=== PATIENT | female | born 1970 | race Caucasian/White ===

== ENCOUNTER 2019-06-01 00:33 | Day surgery (SDC) | payer BC, SELFPAY ==
[2019-05-25 14:59] VITALS: BMI 30.9
--- NOTE | 2019-05-30 14:14 | WPDANESEPP ---
Anes - Eval Pre Procedure Procedure: Operation Date: 06/01/19 10:00 Proposed Procedures p Screening Colonoscopy - Dayo Smiley MD Date/Time: 05/30/19 14:14 Pre Op Diagnosis: neoplasm screening Patient Data Age: 49 Gender: F Height: 5 ft 6 in Weight: 87 kg Allergies Allergy/AdvReac Type Severity Reaction Status Date / Time shellfish derived Allergy Severe lip Verified 05/25/19 14:56 swelling,hives, nauseated amoxicillin Allergy Intermediate swollen Verified 05/25/19 14:56 lips, vomiting guaifenesin [From Mucinex] Allergy Intermediate Rash Verified 05/25/19 14:56 Home Medications Medication Instructions Recorded Confirmed Type cetirizine 10 mg capsule 10 mg PO DAILY #90 cap 04/29/19 05/25/19 Rx Patient hx anesthesia problems: none Family hx anesthesia problems: none PMFSH Past Medical History Medical History (Updated 05/30/19 @ 14:12 by Claudine Randall CRNA) Obesity (BMI 30-39.9) Surgical History Surgical History (Updated 05/30/19 @ 14:14 by Claudine Randall CRNA) H/O abdominoplasty H/O arthroscopy of shoulder right H/O: hysterectomy Hx of augmentation mammoplasty Hx of cholecystectomy Family History Family History Father Patient's father is in good health Social History Social History Smoking status: Former smoker Second hand tobacco smoke exposure: No Smoking end date: 04/22/91 Alcohol intake: current Exam Day of Procedure 05/30/19 14:14
[2019-06-01 08:37] VITALS: BP 135/89; PULSE 87; TEMP 36.7; O2SAT 99
[2019-06-01] MEDS: LACTATED RINGERS 1,000 ML 150 ML IV CONT (08:55)
--- NOTE | 2019-06-01 09:20 | P.PNAN_ITS ---
Anes - Eval Final PreProcedure Day of Procedure 06/01/19 09:20 Patient weight: obese Heart: regular rate and rhythm Lungs: clear to auscultation Airway: Mallampati scale class 1 Neurological: alert and oriented Last oral intake: >/= 8 hours ASA classification: II Emergent: no Anesthetic plan: proceed Anesthesia type and monitoring: general GIVS and standard monitoring Informed Consent: The patient's anesthetic plan and its attendant risks and duncan efits were discussed with the patient/family/POA. Questions were solicited and answers provided to the satisfaction of the patient/family/POA.
--- NOTE | 2019-06-01 09:48 | PM.HPGS ---
History of Present Illness History of Present Illness Consent: Risks, benefits, and alternatives have been discussed and questions answered. Patient agrees to proceed with procedure. Chief complaint: neoplasm screening Narrative: Sherman Bella is a 49 year old female for screening colonoscopy. She has a family history of colon cancer on her father's side PMFSH Past Medical History Medical History Obesity (BMI 30-39.9) Surgical History Surgical History H/O abdominoplasty H/O arthroscopy of shoulder right H/O: hysterectomy Hx of augmentation mammoplasty Hx of cholecystectomy Family History Family History Father Patient's father is in good health Social History Social History Smoking status: Former smoker Second hand tobacco smoke exposure: No Smoking end date: 04/22/91 Alcohol intake: current Meds Home Medications and Allergies Home Medications Medication Instructions Recorded Confirmed Type cetirizine 10 mg capsule 10 mg PO DAILY #90 cap 04/29/19 05/25/19 Rx Allergies Allergy/AdvReac Type Severity Reaction Status Date / Time shellfish derived Allergy Severe lip Verified 06/01/19 08:36 swelling,hives, nauseated amoxicillin Allergy Intermediate swollen Verified 06/01/19 08:36 lips, vomiting guaifenesin [From Mucinex] Allergy Intermediate Rash Verified 06/01/19 08:36 Vital Signs Vital Signs - 24 hr 06/01/19 08:37 Temperature 36.7 C Pulse Rate 87 Blood Pressure 135/89 Pulse Oximetry 99 Exam Resp: Auscultation: clear to auscultation bilaterally Cardio: Rate: regular rate Rhythm: regular rhythm GI: GI Palp: Yes Soft to palpation and No Tenderness to palpation present (GI) Assessment and Plan Assessment and plan (1) Colon cancer screening: Code(s): Z12.11 - Encounter for screening for malignant neoplasm of colon Status: Acute Assessment and Plan: Colonoscopy with possible biopsy or polypectomy or cautery or injection of substances.
[2019-06-01 10:21] VITALS: BP 92/55; PULSE 73; RESP 19; O2SAT 100
[2019-06-01 10:31] VITALS: BP 99/59; PULSE 71; RESP 19; O2SAT 100
[2019-06-01 10:41] VITALS: BP 104/70; PULSE 67; RESP 15; O2SAT 100
== END 2019-06-01 10:50 | disposition home or self-care (01) ==
PROVIDERS: PCP Internal Medicine; Visit Provider Internal Medicine Gastroenterology
PROC: 0DJD8ZZ Inspection of Lower Intestinal Tract, Via Natural or Artificial Opening Endoscopic (ICD-10-PCS; CPT 45378; principal; 2019-06-01 10:00)
DX: Z12.11 Encounter for screening for malignant neoplasm of colon (principal); D12.5 Benign neoplasm of sigmoid colon; E66.9 Obesity, unspecified; Z68.31 Body mass index [BMI] 31.0-31.9, adult; Z87.891 Personal history of nicotine dependence
CPT/HCPCS: 45385; 88305; J2704; J7120

== ENCOUNTER → 2020-04-26 13:40 | Outpatient (CLI) | payer BC, SELFPAY ==
--- NOTE | ~2020-04-26 | CT_ITS ---
EXAMINATION: CT abdomen pelvis w con EXAM DATE: 04/26/2020 14:08 INDICATION: Right lower quadrant pain. Constipation. TECHNIQUE: Spiral CT of the abdomen and pelvis was performed following intravenous injection of 100 m L Omnipaque 350. Axial, coronal and sagittal images were reviewed. The dose-length product (DLP) fo r this examination was 810.01 mGy-cm. The exposure was tailored according to patient size (auto mA e xposure control), and iterative reconstruction (ASIR) was used as additional dose reduction technique . Comparison is made to prior examination from 06/24/2014. FINDINGS: The liver, spleen, adrenal glands and pancreas are unremarkable. There are cholecystectomy clips. Portal and splenic veins are patent. Kidneys enhance symmetrically. There is no hydronephr osis. The uterus is not identified and has likely been surgically resected. The bladder is unremar kable. There is no retroperitoneal or pelvic lymphadenopathy. There is mild scattered arterioscler otic disease. There is a round region at or in the terminal ileum measuring about 3 cm in diameter and 36 Hounsfiel d units, possible small bowel mass, or could be appendix origin histology such as mucocele or carcino id tumor (normal appendix not definitively identify). Consider follow-up fluoroscopy small bowel julisa um examination. There is small sliding gastroesophageal hiatal hernia. There is moderate amount of colonic stool. No free intraperitoneal gas. The heart is normal in size. There are no pericardial or pleural effu sions. There is a right pericardial cyst measuring 4.5 cm. The lung bases are unremarkable. Left shaila ac bone island. IMPRESSION: 1. Pericecal soft tissue density around region, differential diagnosis including terminal ileal mass , appendical carcinoid or mucocele, cecal polyp. Consider small bowel follow-through. 2. Moderate colonic stool. 3. Small gastroesophageal hiatal hernia. 4. Pericardial cyst. Reviewed, dictated and finalized at location A. STICK WORKER IMPRESSION: 1. Pericecal soft tissue density around region, differential diagnosis includi ng terminal ileal mass, appendical carcinoid or mucocele, cecal polyp. Consider small bowel follow-through. 2. Moderate colonic stool. 3. Small gastroesophageal hiatal hernia. 4. Pericardial cyst.
== END ==
PROVIDERS: PCP Internal Medicine; Visit Provider Obstetrics & Gynecology
DX: R10.2 Pelvic and perineal pain (principal); R93.5 Abnormal findings on diagnostic imaging of other abdominal regions, including retroperitoneum; K44.9 Diaphragmatic hernia without obstruction or gangrene; Q24.8 Other specified congenital malformations of heart
CPT/HCPCS: 74177; Q9967

== ENCOUNTER → 2020-05-09 12:35 | Outpatient (CLI) | payer BC, SELFPAY ==
--- NOTE | ~2020-05-09 | XR_ITS ---
EXAMINATION: XR small bowel follow through DATE: 05/09/2020 17:14 INDICATION: Right lower quadrant abdominal pain. TECHNIQUE: Oral contrast was administered, and a time course of radiographs of the abdomen was obtain ed. Fluoroscopy of the small bowel was performed. Fluoroscopy exposure time was 0.4 minutes. The tota l number of images was 19. COMPARISON: CT abdomen and pelvis 04/26/2020 FINDINGS: There are no dilated loops of bowel. No stricture. No mass. Transit time from the stomach to proximal colon was approximately 3 hours and 25 minutes. Surgical clips in the right upper quadrant are likel y from cholecystectomy. IMPRESSION: 1. Normal small bowel series. Reviewed, dictated and finalized at location B. ECT BUYER
== END ==
PROVIDERS: PCP Internal Medicine; Visit Provider Internal Medicine Gastroenterology
DX: R10.31 Right lower quadrant pain (principal)
CPT/HCPCS: 74250

== ENCOUNTER 2021-12-05 16:40 | Emergency (ER) | payer BC, SELFPAY ==
[2021-12-05 16:50] VITALS: BP 163/99; PULSE 87; RESP 16; TEMP 36.8; O2SAT 99
--- NOTE | 2021-12-05 17:12 | ED.FEMALEGU ---
HPI - Female Genitourinary General Chief complaint: Urogenital-Female Stated complaint: vaginal pain and burning Time Seen by Provider: 12/05/21 17:15 Source: patient, RN notes reviewed and old records reviewed Mode of arrival: ambulatory Limitations: no limitations History of Present Illness HPI Narrative: 51year old female audrey presents to express care with complaints of vaginal irritation and burning which started on Saturday morning after being on float trip this past weekend. Patient denies any vaginal discharge or any itching, denies any concern for STD exposure. Patient reports that she has not had any burning or pain with urination or any urgency, frequency, or any blood noted in urine. Patient denies any CVA tenderness or any suprapubic pain or pressure. MD elicited complaint: other (vaginal discomfort and burning) Pertinent past history: hysterectomy Onset (ago): day(s) (1) Related Data Home Medications Medication Instructions Recorded Confirmed Lactobacillus acidophilus 10 10,000 mmu cells PO DAILY 05/02/20 12/05/21 billion cell capsule (Probiotic) cholecalciferol (vitamin D3) 50 50 mcg PO DAILY 05/02/20 12/05/21 mcg (2,000 unit) tablet zinc 50 mg tablet 50 mg PO DAILY 01/24/21 12/05/21 Allergies Allergy/AdvReac Type Severity Reaction Status Date / Time shellfish derived Allergy Severe Anaphylaxis Verified 08/02/21 11:05 amoxicillin Allergy Intermediate Hives Verified 08/02/21 11:05 clindamycin Allergy Intermediate Hives Verified 08/02/21 11:05 guaifenesin [From Mucinex] Allergy Intermediate Rash Verified 08/02/21 11:05 Review of Systems Review of Systems: CONSTITUTIONAL: Denies fever, chills, or sweats. EYES: Denies visual changes, redness, or discharge. ENT: Denies rhinorrhea, congestion, sore throat, or otalgia. CARDIOVASCULAR: Denies chest pain, palpitations, or edema. RESPIRATORY: Denies cough or dyspnea. GASTROINTESTINAL: Denies abdominal pain, nausea, vomiting, or diarrhea. GENITOURINARY: Denies dysuria or hematuria.positive fro vaginal burning and discomfort, no discharge or itching stated SKIN: Denies rash or itching. MUSCULOSKELETAL: Denies back pain, joint pain, or myalgia.No CVA tenderness NEUROLOGIC: Denies headache, numbness, or weakness. PSYCHIATRIC: Denies anxiety or depression. All systems reviewed & are unremarkable except as noted in HPI and below PMFSH Past Medical History Medical History Obesity (BMI 30-39.9) RLQ abdominal pain Surgical History Surgical History H/O abdominoplasty H/O arthroscopy of shoulder right H/O: hysterectomy Hx of augmentation mammoplasty Hx of cholecystectomy Family History Family History Father Patient's father is in good health Social History Social History Smoking status: Never smoker Second hand tobacco smoke exposure: No Smoking end date: 04/22/91 Alcohol intake: current Drinks per week: 4 Alcohol use details: Wine Spiritual care concerns: No Comments At time of signature, agree with nursing past medical, surgical, social and family history. There is no relevant family history pertinent to the presenting complaint Exam Narrative: GENERAL: Well-appearing, well-nourished, and in no acute distress. HEAD: Normocephalic, atraumatic. EYES: PERRLA and EOMI. ENT: Nares clear, no rhinorrhea or epistaxis. Mucous membranes moist. TMs normal with good light reflex throat pink no lesions or exudates NECK: Supple. No lymphadenopathy CHEST: Clear to auscultation. No respiratory distress. SaO2 99% on room air HEART: Regular rate and rhythm. No murmur heard. Normal peripheral pulses. ABDOMEN: Soft, nontender, nondistended, normal active bowel sounds. No suprapubic tenderness no CVA tenderness on exam. Vaginal exam comple
== END 2021-12-05 17:47 | disposition home or self-care (01) ==
PROVIDERS: Emergency Provider Registered Nurse
DX: R10.2 Pelvic and perineal pain (principal); E66.9 Obesity, unspecified; Z68.31 Body mass index [BMI] 31.0-31.9, adult
CPT/HCPCS: 81003; 87070; 99213; G0463

== ENCOUNTER 2022-08-04 08:15 | Emergency (ER) | payer BC, SELFPAY ==
[2022-08-04 08:34] VITALS: BP 144/81; PULSE 112; RESP 16; TEMP 37.6; O2SAT 100
--- NOTE | 2022-08-04 08:50 | ED.URI ---
HPI - URI/Sore Throat General Chief Complaint: Upper Respiratory Infection Stated Complaint: fever,swollen tonsils,ear pain,sore throat Time Seen by Provider: 08/04/22 08:50 Source: patient, RN notes reviewed and old records reviewed Mode of arrival: ambulatory Limitations: no limitations History of Present Illness HPI Narrative: 52 year old female who presents to [facility] with complaints of fevers, swollen tonsils, ear pain and sore throat for the for the past 3 days. She reports that she has had chills and body aches and has had fevers up to 103.9F. Patient reports that she has noted white exudates on her tonsils, and her throat is sore especially with swallowing. Patient reports that she has not had COVID shots or flu shot. Patient has been taking Tylenol for her fever and takes daily Zyrtec. MD elicited complaint: fever, sore throat, rhinorrhea, nasal congestion and other (chills and body aches) Pertinent past history: other (history of strep) Onset (ago): day(s) (3) Pain scale (0-10): 4 Treatments prior to arrival: acetaminophen and other (zyrtec daily) Related Data Home Medications Medication Instructions Recorded Confirmed cholecalciferol (vitamin D3) 50 50 mcg PO DAILY 05/02/20 08/04/22 mcg (2,000 unit) tablet zinc 50 mg tablet 50 mg PO DAILY 01/24/21 08/04/22 Allergies Allergy/AdvReac Type Severity Reaction Status Date / Time shellfish derived Allergy Severe Anaphylaxis Verified 08/04/22 08:27 amoxicillin Allergy Intermediate Hives Verified 08/04/22 08:27 clindamycin Allergy Intermediate Hives Verified 08/04/22 08:27 guaifenesin [From Mucinex] Allergy Intermediate Rash Verified 08/04/22 08:27 ciprofloxacin Allergy Rash Verified 08/04/22 08:38 Review of Systems Review of Systems: CONSTITUTIONAL:Reports malaise, chills, sweats, or fever. EYES: Denies visual changes, redness, or discharge. ENT: Reports rhinorrhea, congestion, sinus pain, otalgia and sore throat. CARDIOVASCULAR: Denies chest pain, palpitations, or edema. RESPIRATORY: Reports no cough.? Denies dyspnea. GASTROINTESTINAL: Denies abdominal pain, nausea, vomiting, diarrhea SKIN: Denies rash or itching. MUSCULOSKELETAL:Reports myalgia. NEUROLOGIC: Denies headache. All systems reviewed & are unremarkable except as noted in HPI and below PMFSH Past Medical History Medical History Hx of urticaria Obesity (BMI 30-39.9) RLQ abdominal pain Surgical History Surgical History H/O abdominoplasty H/O arthroscopy of shoulder right H/O: hysterectomy Hx of augmentation mammoplasty Hx of cholecystectomy Family History Family History Father Patient's father is in good health Social History Social History Smoking status: Never smoker Second hand tobacco smoke exposure: No Smoking end date: 04/22/91 Alcohol intake: current Drinks per week: 4 Alcohol use details: Wine Substance use: unknown Lack of Transportation: No Lack of Food: Never True Current Housing: I Have Housing Concerned About Future Housing: No Difficulty Paying Gas/Electric Bills: No Difficulty Paying for Meds: No Currently Unemployed: No Education: Associate Degree Difficulty w/ Childcare or Family Care: No Living arrangements: with family Spiritual care concerns: No Comments At time of signature, agree with nursing past medical, surgical, social and family history. There is no relevant family history pertinent to the presenting complaint Exam Narrative: GENERAL: Well-appearing, well-nourished, and in no acute distress. HEAD: Normocephalic EYES: PERRLA, conjunctivae clear ENT: Nares clear, turbinates edematous and erythematous, clear discharge. Mucous membranes moist. TM pearly calabrese with dull light refl
== END 2022-08-04 09:07 | disposition home or self-care (01) ==
PROVIDERS: Emergency Provider Registered Nurse; PCP Internal Medicine
DX: J02.0 Streptococcal pharyngitis (principal); J10.1 Influenza due to other identified influenza virus with other respiratory manifestations; Z20.822 Contact with and (suspected) exposure to COVID-19; Z87.891 Personal history of nicotine dependence; E66.9 Obesity, unspecified; Z68.30 Body mass index [BMI] 30.0-30.9, adult
CPT/HCPCS: 87426; 87804; 87880; 99213; C9803; G0463

== ENCOUNTER 2023-02-12 10:28 | Emergency (ER) | payer BC, SELFPAY ==
[2023-02-12 10:35] VITALS: BP 123/90; PULSE 96; RESP 16; TEMP 36.9; O2SAT 98
--- NOTE | 2023-02-12 10:45 | ED.URI ---
HPI - URI/Sore Throat General Chief Complaint: Upper Respiratory Infection Stated Complaint: Strep symptoms Time Seen by Provider: 02/12/23 10:40 Source: patient Mode of arrival: ambulatory Limitations: no limitations History of Present Illness HPI Narrative: 53-year-old female who presents to [facility] complaints of sore throat and bilateral ear pressure since yesterday with fever up to 101.7F with some ear pressure, few diarrhea stools yesterday, denies any nausea or vomiting.. Patient reports that she has been taking DayQuil for her symptoms. Patient denies any cough or shortness of breath, reports some nasal congestion and drainage. MD elicited complaint: fever, sore throat and other (ear pain) Onset (ago): day(s) (day 2 of symptoms) Pain scale (0-10): 4 Able to tolerate fluids by mouth: Yes Associated symptoms: fever, chills, sore throat and ear pain Treatments prior to arrival: other (DayQuil) Related Data Home Medications Medication Instructions Recorded Confirmed cholecalciferol (vitamin D3) 50 50 mcg PO DAILY 05/02/20 02/12/23 mcg (2,000 unit) tablet zinc 50 mg tablet 50 mg PO DAILY 01/24/21 02/12/23 Allergies Allergy/AdvReac Type Severity Reaction Status Date / Time shellfish derived Allergy Severe Anaphylaxis Verified 02/12/23 10:41 amoxicillin Allergy Intermediate Hives Verified 02/12/23 10:41 clindamycin Allergy Intermediate Hives Verified 02/12/23 10:41 guaifenesin [From Mucinex] Allergy Intermediate Rash Verified 02/12/23 10:41 ciprofloxacin Allergy Rash Verified 02/12/23 10:41 Review of Systems Review of Systems: CONSTITUTIONAL: Reports malaise, chills, sweats, and fever. EYES: Denies visual changes, redness, or discharge. ENT: Reports rhinorrhea, congestion,no sinus pain,bilateral otalgia positive for sore throat. CARDIOVASCULAR: Denies chest pain, palpitations, or edema. RESPIRATORY: Reports no cough.? Denies dyspnea. GASTROINTESTINAL: Denies abdominal pain, nausea, vomiting, positive for diarrhea yesterday SKIN: Denies rash or itching. MUSCULOSKELETAL: Denies myalgia. NEUROLOGIC: Denies headache. All systems reviewed & are unremarkable except as noted in HPI and below PMFSH Past Medical History Medical History Hx of urticaria Obesity (BMI 30-39.9) RLQ abdominal pain Surgical History Surgical History H/O abdominoplasty H/O arthroscopy of shoulder right H/O: hysterectomy Hx of augmentation mammoplasty Hx of cholecystectomy Family History Family History Father Patient's father is in good health Social History Social History Smoking status: Never smoker Second hand tobacco smoke exposure: No Smoking end date: 04/22/91 Alcohol intake: current Drinks per week: 4 Alcohol use details: Wine Substance use: unknown Lack of Transportation: No Lack of Food: Never True Current Housing: I Have Housing Concerned About Future Housing: No Difficulty Paying Gas/Electric Bills: No Difficulty Paying for Meds: No Currently Unemployed: No Education: Associate Degree Difficulty w/ Childcare or Family Care: No Living arrangements: with family Spiritual care concerns: No Comments At time of signature, agree with nursing past medical, surgical, social and family history. There is no relevant family history pertinent to the presenting complaint Exam Narrative: GENERAL: Well-appearing, well-nourished, and in no acute distress. HEAD: Normocephalic EYES: PERRLA, conjunctivae clear ENT: Nares clear, turbinates edematous and erythematous, clear discharge. Mucous membranes moist. TM pearly calabrese with dull light reflex bilaterally; no tragal tenderness. Oropharynx erythematous without lesions. Tonsils red enlarged and witho
== END 2023-02-12 11:02 | disposition home or self-care (01) ==
PROVIDERS: Emergency Provider Registered Nurse; PCP Internal Medicine
DX: J02.9 Acute pharyngitis, unspecified (principal); E66.9 Obesity, unspecified; Z68.28 Body mass index [BMI] 28.0-28.9, adult
CPT/HCPCS: 87081; 87880; 99213; G0463

== ENCOUNTER 2023-05-08 09:41 | Outpatient (CLI) | payer BC, SELFPAY ==
--- NOTE | ~2023-05-08 | MM_ITS ---
EXAMINATION: MM scrn dayan implant BI w paresh HISTORY: Screening mammogram TECHNIQUE: Craniocaudal and mediolateral oblique 3-D tomosynthesis images with implant displacement a nd synthetic 2-D images were generated. Craniocaudal and mediolateral oblique views of the breasts wi thout implant displacement were obtained using full field digital mammography. CAD analysis was submi tted and interpreted. COMPARISON: No prior mammogram is available for comparison at this institution. BREAST PARENCHYMAL COMPOSITION: The breasts are heterogeneously dense, which may obscure small masses FINDINGS: There is no evidence of suspicious mass, calcification, or architectural distortion to sugg est malignancy in either breast. There has been no suspicious interval change. IMPRESSION: 1. No mammographic evidence of malignancy. 2. Recommend routine screening mammography in one year. BI-RADS Category 1: Negative Reviewed, dictated and finalized at location A. ENTARY SCHOOL PROFESSIONAL
== END 2023-05-08 09:42 | disposition home or self-care (01) ==
LOC: ANHIMG 09:46
PROVIDERS: PCP Internal Medicine; Visit Provider Obstetrics & Gynecology
DX: Z12.31 Encounter for screening mammogram for malignant neoplasm of breast (principal)
CPT/HCPCS: 77063; 77067

== ENCOUNTER 2023-11-14 19:38 | Emergency (ER) | payer BC, SELFPAY ==
[2023-11-14 19:44] VITALS: BP 152/103; PULSE 85; RESP 16; TEMP 36.6; O2SAT 100
--- NOTE | 2023-11-14 19:52 | ED.FEMALEGU ---
HPI - Female Genitourinary General Chief complaint: Urogenital-Female Stated complaint: Uti Symptoms Time Seen by Provider: 11/14/23 19:49 Source: patient and RN notes reviewed Mode of arrival: ambulatory Limitations: no limitations History of Present Illness HPI Narrative: Patient presents today complaining of urgency, dysuria, and suprapubic pressure. Symptoms began this afternoon. Denies any additional symptoms to include fever, back pain, nausea or vomiting. She has tried no [id number] treatment prior to arrival. Related Data Home Medications Medication Instructions Recorded Confirmed cholecalciferol (vitamin D3) 50 50 mcg PO DAILY 05/02/20 11/14/23 mcg (2,000 unit) tablet zinc 50 mg tablet 50 mg PO DAILY 01/24/21 11/14/23 Allergies Allergy/AdvReac Type Severity Reaction Status Date / Time shellfish derived Allergy Severe Anaphylaxis Verified 11/14/23 19:42 amoxicillin Allergy Intermediate Hives Verified 11/14/23 19:42 clindamycin Allergy Intermediate Hives Verified 11/14/23 19:42 guaifenesin [From Mucinex] Allergy Intermediate Rash Verified 11/14/23 19:42 ciprofloxacin Allergy Rash Verified 11/14/23 19:42 Review of Systems Review of Systems: CONSTITUTIONAL: Denies body aches, fever, chills, or sweats. EYES: Denies visual changes, redness, or discharge. ENT: Denies rhinorrhea, congestion, sore throat, or otalgia. CARDIOVASCULAR: Denies chest pain, palpitations, or edema. RESPIRATORY: Denies cough or dyspnea. GASTROINTESTINAL: Denies abdominal pain, nausea, vomiting, or diarrhea. GENITOURINARY:+ dysuria, urgency, suprapubic pressure SKIN: Denies rash, itching, or wounds. MUSCULOSKELETAL: Denies back pain, joint pain, or myalgia. NEUROLOGIC: Denies headache, numbness, tingling, or weakness. PSYCH: Denies depression or anxiety. [facility] Past Medical History Medical History Hx of urticaria Obesity (BMI 30-39.9) RLQ abdominal pain Surgical History Surgical History H/O abdominoplasty H/O arthroscopy of shoulder right H/O: hysterectomy Hx of augmentation mammoplasty Hx of cholecystectomy Family History Family History Father Patient's father is in good health Social History Social History Smoking status: Never smoker Second hand tobacco smoke exposure: No Smoking end date: 04/22/91 Alcohol intake: current Drinks per week: 4 Alcohol use details: Wine Substance use: unknown Lack of Transportation: No Lack of Food: Never True Current Housing: I Have Housing Concerned About Future Housing: No Difficulty Paying Gas/Electric Bills: No Difficulty Paying for Meds: No Currently Unemployed: No Education: Associate Degree Difficulty w/ Childcare or Family Care: No Living arrangements: with family Spiritual care concerns: No Comments At time of signature, I have reviewed and agree with nursing past medical, surgical, social and family history unless otherwise noted. Please see nursing chart for further information. There is no relevant family history pertinent to the presenting complaint Exam Narrative: GENERAL: Well-appearing, well-nourished, and in no acute distress. HEAD: Normocephalic, atraumatic. EYES: EOMI. No redness or drainage. Conjunctivae normal. ENT: Mucous membranes pink and moist. NECK: Normal AROM. CHEST: No respiratory distress. Clear to auscultation. HEART: Regular rate and rhythm. No murmur appreciated. ABDOMEN: Soft, nontender, nondistended, normal active bowel sounds. -CVAT EXTREMITIES: Normal range of motion. No edema. SKIN: Warm, dry, no rash. Capillary refill normal. Normal skin turgor. NEURO: No focal deficits. Alert and oriented x3. Gait steady. PSYCH: Normal affect. No signs of
[2023-11-15 03:21] LABS: EDUAAPPEAR Cloudy; EDUABILI Negative; EDUABLOOD 2+; EDUACOLOR1 Yellow; EDUAGLUCOSE Negative; EDUAKETONE Negative; EDUALEUKO 2+; EDUANITRATE Negative; EDUAPH 5.5; EDUAPROTEIN 2+; EDUAUROBILI 0.2
== END 2023-11-14 20:00 | disposition home or self-care (01) ==
PROVIDERS: Emergency Provider Nurse Practitioner
DX: N30.01 Acute cystitis with hematuria (principal); B96.20 Unspecified Escherichia coli [E. coli] as the cause of diseases classified elsewhere; Z87.891 Personal history of nicotine dependence; E66.9 Obesity, unspecified; Z68.28 Body mass index [BMI] 28.0-28.9, adult
CPT/HCPCS: 81003; 87077; 87086; 87088; 87186; 99213; G0463

== ENCOUNTER 2023-11-17 14:49 | Emergency (ER) | payer BC, SELFPAY ==
[2023-11-17 15:00] VITALS: BP 166/98; PULSE 97; RESP 16; TEMP 36.7; O2SAT 100
[2023-11-17 15:05] VITALS: BP 166/98; PULSE 97; RESP 16; TEMP 36.7; O2SAT 100
--- NOTE | 2023-11-17 15:17 | ED.GENADULT ---
HPI - General Adult General Chief complaint: Recheck/Abnormal Lab/Rx Stated complaint: ELEVATED BLOOD PRESSURE Time Seen by Provider: 11/17/23 15:07 Source: patient, RN notes reviewed and old records reviewed Mode of arrival: ambulatory Limitations: no limitations History of Present Illness HPI narrative: 53 year old female who presents to express care with concern since being seen last week on 11/13 for elevation of her blood pressure. Patient reports that she has had some ringing in her ears and some intermittent headache which is dull for the las 2-3 days. Patient reports that she has been monitoring her blood pressure at home and it has consistently been elevated around 150--160 over 90-100's for her blood pressure. patient denies any chest pain or any shortness of breath, denies any facial tingling or any tingling in her extremities or any feelings of dizziness. Patient reports about 10 years ago she was on low dose Lisinopril for hypertension and she was able to gt off of medication after weight loss and exercise. MD complaint: blood pressure elevated Onset (ago): day(s) (2-3 days) Severity: moderate Treatments prior to arrival: none Related Data Home Medications Medication Instructions Recorded Confirmed cholecalciferol (vitamin D3) 50 50 mcg PO DAILY 05/02/20 11/17/23 mcg (2,000 unit) tablet zinc 50 mg tablet 50 mg PO DAILY 01/24/21 11/17/23 Allergies Allergy/AdvReac Type Severity Reaction Status Date / Time shellfish derived Allergy Severe Anaphylaxis Verified 11/17/23 14:57 amoxicillin Allergy Intermediate Hives Verified 11/17/23 14:57 clindamycin Allergy Intermediate Hives Verified 11/17/23 14:57 guaifenesin [From Mucinex] Allergy Intermediate Rash Verified 11/17/23 14:57 ciprofloxacin Allergy Rash Verified 11/17/23 14:57 Review of Systems Review of Systems: CONSTITUTIONAL: Denies fever, chills, or sweats. EYES: Denies visual changes, redness, or discharge. ENT: Denies rhinorrhea, congestion, sore throat, or otalgia.states some ringing in ears CARDIOVASCULAR: Denies chest pain, palpitations, or edema. RESPIRATORY: Denies cough or dyspnea. GASTROINTESTINAL: Denies abdominal pain, nausea, vomiting, or diarrhea. GENITOURINARY: Denies dysuria or hematuria. SKIN: Denies rash or itching. MUSCULOSKELETAL: Denies back pain, joint pain, or myalgia. NEUROLOGIC: reports some intermittent headache,no numbness, or weakness. PSYCHIATRIC: Reports anxiety or depression. All systems reviewed & are unremarkable except as noted in HPI and below PMFSH Past Medical History Medical History Hx of urticaria Obesity (BMI 30-39.9) RLQ abdominal pain Surgical History Surgical History H/O abdominoplasty H/O arthroscopy of shoulder right H/O: hysterectomy Hx of augmentation mammoplasty Hx of cholecystectomy Family History Family History Father Patient's father is in good health Social History Social History (Updated 11/17/23 @ 16:04 by Kalee Helm NP) Smoking status: Former smoker Second hand tobacco smoke exposure: No Smoking end date: 04/22/91 Alcohol intake: current Drinks per week: 4 Alcohol use details: Wine Substance use: unknown Lack of Transportation: No Lack of Food: Never True Current Housing: I Have Housing Concerned About Future Housing: No Difficulty Paying Gas/Electric Bills: No Difficulty Paying for Meds: No Currently Unemployed: No Education: Associate Degree Difficulty w/ Childcare or Family Care: No Living arrangements: with family Spiritual care concerns: No Comments At time of signature, agree with nursing past medical, surgical, social and family history. There is no relevant family history pertinent to the presenting complaint Exam Narrative: GENERAL: Well-kristy
== END 2023-11-17 15:36 | disposition home or self-care (01) ==
PROVIDERS: Emergency Provider Registered Nurse; PCP Internal Medicine
DX: I10 Essential (primary) hypertension (principal); Z87.891 Personal history of nicotine dependence; E66.9 Obesity, unspecified; Z68.22 Body mass index [BMI] 22.0-22.9, adult
CPT/HCPCS: 99213; G0463

== ENCOUNTER 2024-03-28 08:50 | Emergency (ER) | payer BC, SELFPAY ==
--- NOTE | 2024-03-28 08:58 | ED.URI ---
HPI - URI/Sore Throat General Chief Complaint: Upper Respiratory Infection Stated Complaint: Sinus Infection Symptoms History of Present Illness HPI Narrative: 54 y/o female presented for c/o nasal congestion with drainage and cough. Onset 1 week. Endorses green mucous. Denies sob, wheezing, n/v/d/f/c. Taking otc med and drinking tea. Related Data Home Medications Medication Instructions Recorded Confirmed cholecalciferol (vitamin D3) 50 50 mcg PO DAILY 05/02/20 03/28/24 mcg (2,000 unit) tablet zinc 50 mg tablet 50 mg PO DAILY 01/24/21 03/28/24 Allergies Allergy/AdvReac Type Severity Reaction Status Date / Time shellfish derived Allergy Severe Anaphylaxis Verified 03/28/24 09:16 amoxicillin Allergy Intermediate Hives Verified 03/28/24 09:16 clindamycin Allergy Intermediate Hives Verified 03/28/24 09:16 guaifenesin [From Mucinex] Allergy Intermediate Rash Verified 03/28/24 09:16 ciprofloxacin Allergy Rash Verified 03/28/24 09:16 Penicillins AdvReac Severe Swelling Verified 03/28/24 09:16 of Lip/Tongue/Throat Review of Systems Review of Systems: CONSTITUTIONAL: Denies body aches, fever, chills, or sweats. EYES: Denies visual changes, redness, or discharge. ENT: reports rhinorrhea, congestion, otalgia. CARDIOVASCULAR: Denies chest pain, palpitations, or edema. RESPIRATORY: Denies dyspnea. GASTROINTESTINAL: Denies abdominal pain, nausea, vomiting, or diarrhea. SKIN: Denies rash MUSCULOSKELETAL: Denies back pain, joint pain, or myalgia. NEUROLOGIC: Denies headache PMFSH Past Medical History Medical History Allergies Gallbladder disorder Hx of urticaria Obesity (BMI 30-39.9) RLQ abdominal pain Surgical History Surgical History H/O abdominoplasty H/O arthroscopy of shoulder right H/O: hysterectomy Hx of augmentation mammoplasty Hx of cholecystectomy Family History Family History Father Patient's father is in good health Mother Cancer Lung cancer Heart problem Social History Social History Smoking status: Former smoker Second hand tobacco smoke exposure: No Smoking end date: 04/22/91 Alcohol intake: current Drinks per week: 4 Alcohol use details: Wine Substance use: unknown Lack of Transportation: No Lack of Food: Never True Current Housing: I Have Housing Concerned About Future Housing: No Difficulty Paying Gas/Electric Bills: No Difficulty Paying for Meds: No Currently Unemployed: No Education: Associate Degree Difficulty w/ Childcare or Family Care: No Living arrangements: with family Spiritual care concerns: No Exam Narrative: GENERAL: Mildly Ill-appearing, no acute distress. EYES: conjunctivae clear ENT: Mucous membranes moist. TM pearly calabrese with normal light reflex bilaterally; no tragal tenderness. Oropharynx not erythematous without lesions. Tonsils not enlarged and without exudate. No drooling, no hoarseness, no trismus, uvula midline. No tripod positioning, hot potato voice, or soft palate swelling. NECK: Supple. No lymphadenopathy CHEST: Clear to auscultation, breath sounds equal. No respiratory distress, speaks in full sentences. HEART: Regular rate and rhythm. No murmur heard. SKIN: Warm, dry, no rash. NEURO: Alert and oriented x3. Course Course Emergency Course: Patient is aware of diagnosis, understands and agrees to treatment plan. Anticipatory guidance given. Patient agrees to follow-up as directed and is aware of reasons to seek care at the emergency department. Portions of this record may have been created with voice recognition software Level of Care: Express Care Visit Vital Signs Vital signs: Vital Signs Temperature 98.2 F 03/28/24 09:02 Pulse Rate 98 03/28/24 09:02 Respiratory Rate 16 03/28/24 09:02 Blood Pressure 124/82 03/28/24 09:02 Pulse Oximetry 99 03/28/24 09:02 Temperature 98.2 F 03/28/24 09:02 Pulse Rate 98 03/28/24 09:02 Respiratory Rate 16 03/28/24 09:02 Blood Pressure 124/82 03/28/24 09:02 Pulse Oximetry 99 03/28/24 09:02 MDM - URI/Sore Throat MDM Narrative Medical decision making narrative: Discussed physical exam findings Advise supportive treatments. Patient is appropriate for outpatient treatment and follow-up. Differential Diagnosis Differential diagnosis: Likely upper respiratory infection, viral infection and pharyngitis Discharge Plan Discharge Clinical Impression: Upper respiratory infection Patient Disposition: Home, Self-Care Condition: Stable Instructions: Antibiotic Form, Upper Respiratory Infection (ED) Additional Instructions: Take antibiotic as directed Recommendations: Flonase spray and Zyrtec (or Claritin/Kayli) over the counter Cough syrup may cause drowsiness; avoid driving or take it at night time. Tylenol 1000mg every 8 hours as needed for pain Symptomatic treatment includes: rest, fluids, and increase humidity of the air at home. Follow up with your primary care provider in 1 week. Go to the ER for worsening symptoms or concerns. Prescriptions: New azithromycin [Zithromax Z-Chas] 250 mg tablet See Rx Instructions .ROUTE .COMPLEX Qty: 6 0RF Rx Instructions: For 250 mg dose pack: take 500 mg today (day 1), then 250 mg for 4 days (days 2-5) prednisone 50 mg tablet 50 mg PO DAILY Qty: 5 0RF No Action cetirizine 10 mg tablet 10 mg PO DAILY Qty: 90 3RF losartan 50 mg tablet 50 mg PO DAILY Qty: 90 3RF alprazolam 0.25 mg tablet 0.25 mg PO BID PRN (Reason: anxiety) Qty: 30 0RF zinc 50 mg tablet 50 mg PO DAILY omeprazole 20 mg capsule,delayed release(DR/EC) 20 mg PO DAILY Qty: 30 0RF cholecalciferol (vitamin D3) 50 mcg (2,000 unit) Tablet 50 mcg PO DAILY Follow-up/Referrals: Taras Arciniega MD [Primary Care Provider] -
[2024-03-28 09:02] VITALS: BP 124/82; PULSE 98; RESP 16; TEMP 36.8; O2SAT 99
== END 2024-03-28 09:37 | disposition home or self-care (01) ==
PROVIDERS: Emergency Provider Nurse Practitioner Family; PCP Family Medicine
DX: J06.9 Acute upper respiratory infection, unspecified (principal); Z87.891 Personal history of nicotine dependence; E66.9 Obesity, unspecified; Z68.29 Body mass index [BMI] 29.0-29.9, adult
CPT/HCPCS: 99213; G0463

== ENCOUNTER 2024-05-18 15:09 | Emergency (ER) | payer BC, SELFPAY ==
[2024-05-18 15:31] VITALS: BP 152/81; PULSE 97; RESP 16; TEMP 37.6; O2SAT 100
--- NOTE | 2024-05-18 16:01 | ED_ITS ---
HPI - General Adult General Chief complaint: Ear Stated complaint: Ear Pain/Fever Time Seen by Provider: 05/18/24 16:02 Source: patient and RN notes reviewed Mode of arrival: ambulatory Limitations: no limitations History of Present Illness HPI narrative: 54-year-old female presented for complaint of headache, body aches, sinus congestion, cough, fever/chills. Also reports right ear pain. Onset yesterday. Denies sob, wheezing, n/v/d. Took DayQuil today. Related Data Allergies Allergy/AdvReac Type Severity Reaction Status Date / Time shellfish derived Allergy Severe Anaphylaxis Verified 05/18/24 15:35 amoxicillin Allergy Intermediate Hives Verified 05/18/24 15:35 clindamycin Allergy Intermediate Hives Verified 05/18/24 15:35 guaifenesin (From Mucinex) Allergy Intermediate Rash Verified 05/18/24 15:35 ciprofloxacin Allergy Rash Verified 05/18/24 15:35 Penicillins AdvReac Severe Swelling Verified 05/18/24 15:35 of Lip/Tongue/Throat Review of Systems Review of Systems: Per HPI [facility] Past Medical History Medical History Gallbladder disorder Allergies RLQ abdominal pain Obesity (BMI 30-39.9) Hx of urticaria Surgical History Surgical History H/O: hysterectomy Hx of augmentation mammoplasty H/O abdominoplasty H/O arthroscopy of shoulder right Hx of cholecystectomy Family History Family History Father Patient's father is in good health Mother Cancer Lung cancer Heart problem Social History Social History Smoking status: Former smoker Second hand tobacco smoke exposure: No Smoking end date: 04/22/91 Alcohol intake: current Drinks per week: 4 Alcohol use details: Wine Substance use: unknown Lack of Transportation: No Lack of Food: Never True Current Housing: I Have Housing Concerned About Future Housing: No Difficulty Paying Gas/Electric Bills: No Difficulty Paying for Meds: No Currently Unemployed: No Education: Associate Degree Difficulty w/ Childcare or Family Care: No Living arrangements: with family Spiritual care concerns: No Exam Narrative: GENERAL: Mildly Ill-appearing EYES: PERRLA, conjunctivae clear ENT: Mucous membranes moist. TM pearly calabrese with dull light reflex bilaterally; no tragal tenderness. Oropharynx mildly erythematous without lesions or exudate, no drooling, no hoarseness, no trismus, uvula midline. No tripod positioning, muffled voice, soft palate or pharyngeal wall bulging NECK: Supple. No lymphadenopathy CHEST: Clear to auscultation, breath sounds equal. No wheezing, rhonchi, rales, or stridor. No respiratory distress, speaks in full sentences. HEART: Regular rate and rhythm. No murmur heard. SKIN: Warm, dry, no rash. NEURO: Alert and oriented x3. PSYCH: Normal mood and affect Course Course Emergency Course: Patient is aware of diagnosis, understands and agrees to treatment plan. Anticipatory guidance given. Patient agrees to follow-up as directed and is aware of reasons to seek care at the emergency department. Portions of this record may have been created with voice recognition software Level of Care: Express Care Visit Vital Signs Vital signs: Vital Signs Temperature 99.7 F H 05/18/24 15:31 Pulse Rate 97 05/18/24 15:31 Respiratory Rate 16 05/18/24 15:31 Blood Pressure 152/81 H 05/18/24 15:31 Pulse Oximetry 100 05/18/24 15:31 Oxygen Delivery Room Air 05/18/24 15:31 Temperature 99.7 F H 05/18/24 15:31 Pulse Rate 97 05/18/24 15:31 Respiratory Rate 16 05/18/24 15:31 Blood Pressure 152/81 H 05/18/24 15:31 Pulse Oximetry 100 05/18/24 15:31 Oxygen Delivery Room Air 05/18/24 15:31 reviewed Medical Decision Making MDM Narrative Medical decision making narrative: Positive flu. Discussed physical exam findings. Advised supportive measures and signs/symptoms to go to the ER. Pt is appropriate for outpt treatment and f/u. Differential Diagnosis Differential Diagnosis: Influenza, covid, sinusitis, OM, strep pharyngitis, URI Vital Signs Vital Signs: Vital Signs Temperature 99.7 F H 05/18/24 15:31 Pulse Rate 97 05/18/24 15:31 Respiratory Rate 16 05/18/24 15:31 Blood Pressure 152/81 H 05/18/24 15:31 Pulse Oximetry 100 05/18/24 15:31 Oxygen Delivery Room Air 05/18/24 15:31 Temperature 99.7 F H 05/18/24 15:31 Pulse Rate 97 05/18/24 15:31 Respiratory Rate 16 05/18/24 15:31 Blood Pressure 152/81 H 05/18/24 15:31 Pulse Oximetry 100 05/18/24 15:31 Oxygen Delivery Room Air 05/18/24 15:31 Discharge Plan Discharge Clinical Impression: Influenza Patient Disposition: Home, Self-Care Condition: Stable Instructions: Influenza (ED) Additional Instructions: Influenza positive You should avoid crowds until you are fever free for 24 hours without the use of fever reducing medications, or the symptoms are improved Rest. Drink plenty of fluids. Tylenol 1000mg every 8 hours as needed for pain/fever Recommend Flonase spray and Zyrtec (or Claritin/Kayli) for sinus pressure/congestion over the counter Cough syrup may cause drowsiness; avoid driving or take it at night time. Follow up with your primary care provider as needed Go to the ER for worsening symptoms or concerns Patient Language: Kazakh Prescriptions: No Action losartan 50 mg tablet 50 mg PO DAILY Qty: 90 3RF alprazolam 0.25 mg tablet 0.25 mg PO BID PRN (Reason: anxiety) Qty: 30 0RF Follow-up/Referrals: PHYSICIAN,[employer] [Primary Care Provider] - Stand Alone Forms: Work/School Release IP Time of Disposition: 16:09
[2024-05-18 16:11] LABS: EDCOVIDSCREEN Negative (Negative); EDINFLUASCREEN Positive (Negative); EDINFLUBSCREEN Negative (Negative)
== END 2024-05-18 16:12 | disposition home or self-care (01) ==
PROVIDERS: Emergency Provider Nurse Practitioner Family
DX: J10.1 Influenza due to other identified influenza virus with other respiratory manifestations (principal); Z20.822 Contact with and (suspected) exposure to COVID-19; Z87.891 Personal history of nicotine dependence; E66.9 Obesity, unspecified; Z68.28 Body mass index [BMI] 28.0-28.9, adult
CPT/HCPCS: 87426; 87804; 99212; G0463